=== PATIENT | female | born 2000 | race Two or more races ===

== ENCOUNTER 2022-11-03 01:43 | Emergency (ER) | payer MEDICAID ==
[~2022-11-03] VITALS: Ht 165.1 cm; Wt 86.2 kg
[2022-11-03 01:50] VITALS: BP 140/67
--- NOTE | 2022-11-03 01:54 | NUR ---
TO LOBBY A/W BED AMBULATORY
--- NOTE | 2022-11-03 02:00 | NUR ---
pt is complaining about the tootache that radiates to the ear and feel the left face hurt. she took advil 2 hours ago at home
--- NOTE | 2022-11-03 02:02 | NUR ---
she feels that advil recude pain but she can still feel it. room air and ambulatory. pt is drinking soda at this moment.
[2022-11-03] MEDS ORDERED: IBUPROFEN 600 MG TAB PO ONE (02:10)
[2022-11-03] MEDS ORDERED: AMOXICILLIN 500 MG CAP PO ONE (02:10)
[2022-11-03] MEDS ORDERED: PENI500T20 PO (02:38)
[2022-11-03] MEDS ORDERED: NAPR-54 PO (02:38)
[2022-11-03 02:44] VITALS: BP 140/67
--- NOTE | 2022-11-03 02:45 | NUR ---
Patient discharged with v/s stable. Written and verbal after care instructions given and explained. Patient verbalized understanding. Ambulatory with steady gait. All questions addressed prior to discharge. Advised to follow up with PMD. pt left with her belonging
== END 2022-11-03 02:45 | disposition home or self-care (01) ==
LOC: MED 01:43
DX: K08.89 Other specified disorders of teeth and supporting structures (principal); Z79.899 Other long term (current) drug therapy
CPT/HCPCS: 81025; 99283

== ENCOUNTER 2023-04-25 02:37 | Emergency (ER) | payer MEDICAID, OTHER ==
[~2023-04-25] VITALS: Ht 165.1 cm; Wt 90.7 kg
[~2023-04-25 02:37] MED LIST: NAPR-54 PO; PENI500T20 PO
[2023-04-25 02:49] VITALS: BP 132/97; PULSE 93; RESP 17; TEMP 98; O2SAT 97
--- NOTE | 2023-04-25 02:49 | NUR ---
TO BED VIA WHEELCHAIR
[2023-04-25] MEDS ORDERED: KETOROLAC 60 MG/2 ML VIAL IM ONE (03:05)
[2023-04-25] MEDS ORDERED: MORPHINE SULFATE 4 MG/ML SYR IM ONE (03:05)
--- NOTE | 2023-04-25 03:25 | NUR ---
URINE WAS DONE
--- NOTE | 2023-04-25 03:42 | NUR ---
PT WAS TAKEN TO RADIOLOGY
--- NOTE | 2023-04-25 04:15 | NUR ---
AT THE BEDSIDE
[2023-04-25] MEDS ORDERED: NAPR-54 PO (05:59)
[2023-04-25 06:05] VITALS: BP 130/87; PULSE 93; RESP 17; TEMP 98; O2SAT 97
== END 2023-04-25 06:08 | disposition home or self-care (01) ==
LOC: MED 02:37
DX: S33.5XXA Sprain of ligaments of lumbar spine, initial encounter (principal); X58.XXXA Exposure to other specified factors, initial encounter; Y93.89 Activity, other specified; Y92.89 Other specified places as the place of occurrence of the external cause; Y99.8 Other external cause status
CPT/HCPCS: 72110; 81025; 96372; 99283; J2270; J1885